=== PATIENT | female | born 1930 | race Caucasian/White ===

== ENCOUNTER 2017-11-18 16:47 | Emergency (ER) | payer MEDICARE ==
[~2017-11-18] VITALS: Ht 160 cm; Wt 61.7 kg
[2017-11-18] MEDS ORDERED: C-10001000 MG PO (17:17)
[2017-11-18] MEDS ORDERED: ASPIRIN81 MG PO (17:17)
[2017-11-18] MEDS ORDERED: CALCIUM600 MG PO (17:17)
[2017-11-18] MEDS ORDERED: COUMADIN5 MG PO (17:18)
[2017-11-18] MEDS ORDERED: VITAMIN D1000 UNI1 PO (17:18)
[2017-11-18] MEDS ORDERED: DOK100 MG PO (17:19)
[2017-11-18] MEDS ORDERED: DULCOLAX5 MG PO (17:19)
[2017-11-18] MEDS ORDERED: FLEET ENEMA133 ML PR (17:20)
[2017-11-18] MEDS ORDERED: FISH OIL 1,0001 EACH PO (17:20)
[2017-11-18] MEDS ORDERED: HYDROCORT-PRAMO30 G1 PR (17:22)
[2017-11-18] MEDS ORDERED: MAGNESIUM400 M1 PO (17:23)
[2017-11-18] MEDS ORDERED: LORAZEPAM0.5 MG PO (17:23)
[2017-11-18] MEDS ORDERED: TOPROL XL50 MG PO (17:24)
[2017-11-18] MEDS ORDERED: MILK OF MA400 MG/5 M PO (17:24)
[2017-11-18] MEDS ORDERED: DEMADEX20 MG PO (17:26)
[2017-11-18] MEDS ORDERED: MUPIROCIN1 GM NAS (17:26)
[2017-11-18] MEDS ORDERED: PROVENTIL HFA6.7 GM INH (17:26)
[2017-11-18] MEDS ORDERED: ZYPREXA2.5 MG PO (17:27)
== END 2017-11-18 19:29 | disposition home or self-care (01) ==
LOC: ED 16:47
PROC: 0W3Q7ZZ Control Bleeding in Respiratory Tract, Via Natural or Artificial Opening (ICD-10-PCS; principal; 2017-11-18)
DX: R04.0 Epistaxis (principal); I48.91 Unspecified atrial fibrillation; I11.0 Hypertensive heart disease with heart failure; I50.9 Heart failure, unspecified; F03.90 Unspecified dementia, unspecified severity, without behavioral disturbance, psychotic disturbance, mood disturbance, and anxiety; F41.9 Anxiety disorder, unspecified; Z88.0 Allergy status to penicillin; Z88.1 Allergy status to other antibiotic agents; Z79.899 Other long term (current) drug therapy; Z79.82 Long term (current) use of aspirin; Z79.01 Long term (current) use of anticoagulants
CPT/HCPCS: 30901; 99283

== ENCOUNTER 2017-11-21 07:30 | Emergency (ER) | payer MEDICARE ==
[~2017-11-21] VITALS: Ht 160 cm; Wt 56.7 kg
[~2017-11-21 07:30] MED LIST: ASPIRIN81 MG PO; C-10001000 MG PO; CALCIUM600 MG PO; COUMADIN5 MG PO; DEMADEX20 MG PO; DOK100 MG PO; DULCOLAX5 MG PO; FISH OIL 1,0001 EACH PO; FLEET ENEMA133 ML PR; HYDROCORT-PRAMO30 G1 PR; LORAZEPAM0.5 MG PO; MAGNESIUM400 M1 PO; MILK OF MA400 MG/5 M PO; MUPIROCIN1 GM NAS; PROVENTIL HFA6.7 GM INH; TOPROL XL50 MG PO; VITAMIN D1000 UNI1 PO; ZYPREXA2.5 MG PO
== END 2017-11-21 08:55 | disposition home or self-care (01) ==
LOC: ED 07:30
DX: R06.00 Dyspnea, unspecified (principal); R04.0 Epistaxis; I48.91 Unspecified atrial fibrillation; I11.0 Hypertensive heart disease with heart failure; I50.9 Heart failure, unspecified; F03.90 Unspecified dementia, unspecified severity, without behavioral disturbance, psychotic disturbance, mood disturbance, and anxiety; F41.9 Anxiety disorder, unspecified; Z88.0 Allergy status to penicillin; Z88.1 Allergy status to other antibiotic agents; Z79.899 Other long term (current) drug therapy; Z79.82 Long term (current) use of aspirin; Z79.01 Long term (current) use of anticoagulants
CPT/HCPCS: 99284